=== PATIENT | male | born 1980 | race Caucasian/White ===

== ENCOUNTER 2019-09-17 11:09 | Emergency (ER) | payer OTHER ==
[~2019-09-17] VITALS: Ht 170.2 cm; Wt 85.3 kg
[2019-09-17 11:16] VITALS: BP 132/89; Ht 170.2 cm; Wt 85.3 kg
== END 2019-09-17 12:10 | disposition home or self-care (01) ==
LOC: ED 11:09
DX: L03.115 Cellulitis of right lower limb (principal)
CPT/HCPCS: J1885

== ENCOUNTER 2019-11-22 15:14 | Emergency (ER) | payer OTHER ==
[~2019-11-22] VITALS: Ht 170.2 cm; Wt 89.4 kg
[2019-11-22 15:21] VITALS: Ht 170.2 cm; Wt 89.4 kg
[2019-11-22 16:08] VITALS: BP 120/78
== END 2019-11-22 16:08 | disposition home or self-care (01) ==
LOC: ED 15:14
DX: L03.115 Cellulitis of right lower limb (principal)
CPT/HCPCS: J0696; J1885

== ENCOUNTER 2020-02-10 09:18 | Emergency (ER) | payer OTHER ==
[~2020-02-10] VITALS: Ht 170.2 cm; Wt 90.3 kg
[2020-02-10 09:25] VITALS: Ht 170.2 cm; Wt 90.3 kg
[2020-02-10 10:04] VITALS: BP 138/83
== END 2020-02-10 10:04 | disposition home or self-care (01) ==
LOC: ED 09:18
DX: L03.115 Cellulitis of right lower limb (principal)
CPT/HCPCS: J1885

== ENCOUNTER 2020-06-28 12:56 | Emergency (ER) | payer OTHER ==
[~2020-06-28] VITALS: Ht 170.2 cm; Wt 92.1 kg
[2020-06-28 13:09] VITALS: BP 129/88; Ht 170.2 cm; Wt 92.1 kg
== END 2020-06-28 13:54 | disposition home or self-care (01) ==
LOC: ED 12:56
DX: L03.115 Cellulitis of right lower limb (principal); R21 Rash and other nonspecific skin eruption

== ENCOUNTER 2020-08-21 13:19 | Emergency (ER) | payer OTHER ==
[~2020-08-21] VITALS: Ht 172.7 cm; Wt 93.0 kg
[2020-08-21 13:29] VITALS: Ht 172.7 cm; Wt 93.0 kg
[2020-08-21] MEDS ORDERED: KEF500 PO (13:51)
[2020-08-21] MEDS ORDERED: ACETAMINOPHEN-H1 TA1 PO (13:51)
[2020-08-21 14:07] VITALS: BP 130/86
== END 2020-08-21 14:07 | disposition home or self-care (01) ==
LOC: ED 13:19
DX: S93.401A Sprain of unspecified ligament of right ankle, initial encounter (principal); Z98.890 Other specified postprocedural states; X50.1XXA Overexertion from prolonged static or awkward postures, initial encounter; Y93.89 Activity, other specified; Y92.89 Other specified places as the place of occurrence of the external cause; Y99.8 Other external cause status